=== PATIENT | male | born 1995 | race Caucasian/White ===

== ENCOUNTER 2018-08-25 18:14 | Emergency (ER) | payer BC, OTHER ==
[2018-08-25] MEDS: LIDOCAINE 1% (MDV) 20 ML INJ SC (23:07)
== END 2018-08-26 00:06 | disposition home or self-care (01) ==
LOC: FTE 08-26 00:06
DX: L02.414 Cutaneous abscess of left upper limb (principal); R40.2412 Glasgow coma scale score 13-15, at arrival to emergency department
CPT/HCPCS: 10060; 99282-25